=== PATIENT | female | born 1985 | race Caucasian/White ===

== ENCOUNTER 2021-12-28 11:12 | Day surgery (SDC) | payer SELFPAY ==
[~2021-12-28 11:12] MED LIST: Carboprost 250 MCG/ML AMP ONE; Methylergonovine 0.2 MG/ML VIAL ONE; Misoprostol 200 MCG TAB ONE; Tranexamic Acid 1,000 MG/10 ML VIAL ONE
[2021-12-28] MEDS ORDERED: NS w/ Oxytocin 30 units 500 ML ONE (11:17)
[2021-12-28 11:47] VITALS: BMI 32.3
[2021-12-28] MEDS ORDERED: hydrALAZINE 20 MG/ML VIAL SLOW IVP PRN (12:35)
[2021-12-28] MEDS ORDERED: Ondansetron PF 4 MG/2 ML Vial IVP PRN (12:35)
[2021-12-28] MEDS ORDERED: Promethazine HCl 25 MG/ML VIAL IM PRN (12:35)
[2021-12-28] MEDS ORDERED: Methylergonovine 0.2 MG/ML VIAL IM SCH (12:45)
[2021-12-28] MEDS ORDERED: Lactated Ringer's 1,000 ML IV SCH (12:45)
[2021-12-28] MEDS ORDERED: NS w/ Oxytocin 30 units 500 ML IV SCH (12:45)
[2021-12-28] MEDS ORDERED: Lidocaine 1% (PF) 30 ML VIAL SC SCH (13:00)
[2021-12-28] MEDS ORDERED: Benzocaine-Menthol 82.5 ML CAN TOP PRN (14:29)
[2021-12-28 14:48] LABS: Hemoglobin 11.7 g/dL (12.0-15.5); Mean Corpuscular Hemoglobin 29.5 pg (27.0-33.0); Mean Corpuscular Volume 89.4 fl (81.6-98.3); Mean Platelet Volume 11.1 fl (7.4-10.4); Platelet Count 196 10x3/uL (150-450); RBC Distribution Width 14.7 % (11.5-14.5); Red Blood Cell (RBC) Count 3.97 10x6/uL (3.90-5.03); White Blood Cell (WBC) Count 14.1 10x3/uL (3.5-10.5)
== END 2021-12-28 15:57 | disposition home or self-care (01) ==
LOC: CSHLD/OP 11:12
PROVIDERS: ATTEND Obstetrics & Gynecology
DX: O72.1 Other immediate postpartum hemorrhage (principal); O90.81 Anemia of the puerperium; D62 Acute posthemorrhagic anemia; O99.893 Other specified diseases and conditions complicating puerperium; R33.9 Retention of urine, unspecified; O70.1 Second degree perineal laceration during delivery
CPT/HCPCS: 36415; 51701; 85027; 86850; 86900; 86901; 96361; 96365; 96372; 99282